=== PATIENT | female | born 1940 | race Caucasian/White ===

== ENCOUNTER 2018-10-16 19:08 | Inpatient (IN) | payer MEDICARE, OTHER ==
[~2018-10-16] VITALS: Ht 160 cm; Wt 70.8 kg
[2018-10-16] VITALS (7 sets, daily range): BP systolic 102–141; BP diastolic 37–78
[~2018-10-16 19:08] MED LIST: AMIO200T4 PO; ATOR40TA PO; CHOL10002 PO; DABI75CA3 PO; HYDR12.5 PO; LEVO25TA9 PO; LISI10TA5 PO; METO25TA6 PO; PANT40TA2 PO
--- NOTE | 2018-10-16 19:25 | NUR ---
PT BIBPA FOR ABNORMAL LABS FROM [facility]. PT AXO0. PT VENT DEPENDENT. SETTING SIMV RATE 10, TIDAL VOLUME 500, PEEP 5,02 @ 40%. PT PUT ON THE MAINTENANCE CLERK AND PULSE OX. SKIN WARM TO THE TOUCH AND DRY.
[2018-10-16 19:45] LABS: BASOPHILS # (AUTO) 0.1 /CMM (0.0-0.2); BASOPHILS % (AUTO) 0.3 % (0.0-2.0); EOSINOPHILS % (AUTO) 5.1 % (0.0-6.0); HEMATOCRIT 27 % (33-45); HEMOGLOBIN 9.1 g/dL (11.5-14.8); LYMPHOCYTES # (AUTO) 1.5 /CMM (0.8-4.8); LYMPHOCYTES % (AUTO) 8.1 % (20.0-44.0); MEAN CORPUSCULAR HGB CONC 34 g/dl (31.0-36.0); MEAN CORPUSCULAR VOLUME 91 fL (82-100); MONOCYTES # (AUTO) 1.3 /CMM (0.1-1.30); MONOCYTES % (AUTO) 7.5 % (2.0-12.0); NEUTROPHILS # (AUTO) 14.2 /CMM (1.8-8.9); PLATELET COUNT (AUTO) 541 /CMM (150-450); RED BLOOD CELL COUNT(AUTO) 2.92 MIL/uL (4.0-5.2); WHITE BLOOD COUNT (AUTO) 17.9 K/uL (4.3-11.0)
--- NOTE | 2018-10-16 19:45 | NUR ---
XRAY AT BEDSIDE.
--- NOTE | 2018-10-16 19:56 | NUR ---
URINE OBTAINED AND SENT TO LAB.
[2018-10-16] MEDS ORDERED: PIPERACILLIN /TAZOBACTAM 3.375 G in IV D5W 50 ML IV ONE (20:00)
[2018-10-16] MEDS ORDERED: VANCOMYCIN 1 GM in IV D5W 250 ML IV ONE (20:00)
[2018-10-16] MEDS ORDERED: TYL2T PEG (20:06)
[2018-10-16] MEDS ORDERED: SACC250C GT (20:06)
[2018-10-16] MEDS ORDERED: MAGN400O6 GT (20:06)
[2018-10-16] MEDS ORDERED: OMEP20CA10 PEG (20:06)
[2018-10-16] MEDS ORDERED: BISA-79 RC (20:06)
[2018-10-16] MEDS ORDERED: NA P133E RC (20:06)
[2018-10-16] MEDS ORDERED: RANI15SY PEG (20:06)
[2018-10-16] MEDS ORDERED: MULT1TAB73 GT (20:06)
[2018-10-16] MEDS ORDERED: HYDR12.5 PEG (20:06)
[2018-10-16] MEDS ORDERED: DOCU-141 PEG (20:06)
[2018-10-16 20:10] LABS: ALANINE AMINOTRANSFERASE 26 U/L (12-78); ALBUMIN 2.7 g/dL (3.4-5.0); ALKALINE PHOSPHATASE 129 U/L (46-116); ASPARTATE AMINOTRANSFERASE 23 U/L (15-37); BILIRUBIN,DIRECT 0.1 mg/dL (0.0-0.2); BILIRUBIN,TOTAL 0.2 mg/dL (0.2-1.0); CALCIUM, SERUM 8.8 mg/dL (8.5-10.1); CARBON DIOXIDE 23 mmol/L (21-32); CHLORIDE 87 mmol/L (98-107); CREATININE 2.5 mg/dL (0.6-1.3); GLUCOSE 121 mg/dL (74-106); POTASSIUM 5.2 mmol/L (3.5-5.1); TOTAL PROTEIN, SERUM 7.2 g/dL (6.4-8.2); UREA NITROGEN, BLOOD 61 mg/dL (7-18)
[2018-10-16 20:12] LABS: SODIUM SERUM 120 mmol/L (136-145)
[2018-10-16 20:13] LABS: APPEARANCE,URINE Clear (CLEAR); BILIRUBIN,URINE Negative (NEGATIVE); BLOOD, URINE Negative Ery/uL (NEGATIVE); COLOR,URINE Yellow (YELLOW); KETONES,URINE Negative (NEGATIVE); LEUKOCYTE ESTERASE ,URINE Small (NEGATIVE); NITRITE, URINE Negative (NEGATIVE); PROTEIN,URINE Negative (NEGATIVE); UGLUCOSE Negative (NEGATIVE); UROBILINOGEN,URINE 0.2 EU/dL (0.2)
[2018-10-16] MEDS ORDERED: VANCOMYCIN 1 GM VIAL ONE (20:24)
[2018-10-16] MEDS ORDERED: IV NS 0.9% 1,000 ML BAG IV ONE ×2 (20:30→21:00)
--- NOTE | 2018-10-16 20:36 | NUR ---
CALLED DR. CORNELIUS [phone], VOICEMAIL LEFT, WAITING FOR MD CALL BACK,
--- NOTE | 2018-10-16 20:50 | NUR ---
PT HYPOTENSIVE ON THE MONITOR. ER MD AWARE. WILL CARRY OUT ORDERS.
[2018-10-16 20:52] LABS: URINE SODIUM, RANDOM 20 mmol/l (40-220)
[2018-10-16 21:02] LABS: OSMOLALITY,URINE 234 mOS/kg (340-1090)
[2018-10-16 21:04] LABS: BACTERIA,URINE Moderate /HPF (None Seen); RBC,URINE 0-2 /HPF (0-2); SQUAMOUS EPITHELIAL CELL,UR Few /HPF (None Seen)
[2018-10-16] MEDS ORDERED: NOREPINEPHRINE 4 MG/4 ML AMPUL IV ONE (21:14)
--- NOTE | 2018-10-16 21:23 | NUR ---
STEPHY SOLORZANO AT BEDSIDE FOR PICC LINE INSERTION.
--- NOTE | 2018-10-16 21:29 | NUR ---
XRAY AT BEDSIDE.
[2018-10-16] MEDS ORDERED: NOREPINEPHRINE 8 MG in IV D5W 500 ML IV PRN (21:30)
--- NOTE | 2018-10-16 22:15 | NUR ---
LEVOPHED DRIP INFUSING AT 12MCG/MIN, BP 91/44.
--- NOTE | 2018-10-16 22:29 | NUR ---
REPORT GIVEN TO SOFIE SOLORZANO FOR KATHI.
--- NOTE | 2018-10-16 22:45 | NUR ---
ACQUISITIONS LOGISTICS ANALYST NOTES ADMITTED PATIENT FROM ER WHO PRESENTED FROM [facility] FOR EVALUATION DUE TO ABNORMAL LABS (WBC=19.4). HX OF CVA WITH APHASIA,HEMIPARESIS,htn,AFIB,TRACHE/VENT,PEG,BILATERAL HEEL WOUND/ULCER. PATIENT LETHARGIC,OPENS EYES,GRIMACES EDU PAIN,+ COUGH AND GAG.WITH TRACHEOSTOMY # 8 TO THE VENTILATOR .,NOT IN ANY DISTRESS.PICC LINE(CECE) INSERTED IN ER FOR PRESSORS (ON LEVOPHED DRIP FOR BP SUPPORT).g TUBE INTACT ,CLAMPED.WOUND /ULCER NOTED ON LEFT FOOT/ANKLE, AND DTI ON RIGHT HEEL., RASHES/REDNESS ALSO NOTED ALL OVER ABDOMEN AND CHEST AREA.LEFT ARM + CELLULITIS.COMFORT CARE,BACK CARE DONE.
--- NOTE | 2018-10-16 23:07 | NUR ---
RT NOTE PT RECEIVED FROM ER ON THE [facility] VENT SETTINGS OF AC 10, 500, 40% +5. NO RESP DISTRESS NOTED AT THIS TIME. VENT IS PLUGGED INTO RED OUTLET AND ALARMS ARE ON AND AUDIBLE. AMBU BAG IS AT BEDSIDE. WILL CONT TO MONITOR PT. PT IS IN ISOLATION. Addendum: 10/16/18 at 2309 by ZEINAB CUMMINS RT Amended: Links added.
[2018-10-17] VITALS (47 sets, daily range): BP systolic 96–138; BP diastolic 40–75
--- NOTE | 2018-10-17 | NUR ---
LEARNING AND DEVELOPMENT ASSOCIATE NOTES rEMAINS STABLE,LEVOPHED DRIP TITRATED DOWN TOLERATING WITH GOOD BP.NOTED A SKIN BITE /CUT ON RIGHT LOWER LIP WHEN PATIENT OPENED HER MOUTH.(PATIENT ALWAYS CLENCHING HER TEETH/BITING HER LIPS AND STARTS BLEEDING.
[2018-10-17] MEDS: IV NS 0.9% 1,000 ML IV PRN ×3 (00:26→19:21)
[2018-10-17] MEDS: NOREPINEPHRINE 8 MG in IV D5W 500 ML IV PRN ×2 (01:52→05:28)
[2018-10-17] MEDS ORDERED: PIPERACILLIN /TAZOBACTAM 3.375 G in IV D5W 50 ML IV SCH (02:00)
[2018-10-17] MEDS ORDERED: PIPERACILLIN /TAZOBACTAM 2.25 G in IV D5W 50 ML IV ONE (04:00)
[2018-10-17] MEDS ORDERED: PIPERACILLIN /TAZOBACTAM 2.25 G VIAL IV ONE (04:32)
[2018-10-17] MEDS ORDERED: NOREPINEPHRINE 4 MG/4 ML AMPUL IV ONE (04:32)
[2018-10-17 05:06] LABS: BASOPHILS % (AUTO) 0.1 % (0.0-2.0); EOSINOPHILS % (AUTO) 0.1 % (0.0-6.0); HEMATOCRIT 25 % (33-45); HEMOGLOBIN 8.4 g/dL (11.5-14.8); LYMPHOCYTES # (AUTO) 0.5 /CMM (0.8-4.8); LYMPHOCYTES % (AUTO) 1.5 % (20.0-44.0); MEAN CORPUSCULAR HGB CONC 33 g/dl (31.0-36.0); MEAN CORPUSCULAR VOLUME 92 fL (82-100); MONOCYTES % (AUTO) 3.3 % (2.0-12.0); NEUTROPHILS # (AUTO) 29.6 /CMM (1.8-8.9); PLATELET COUNT (AUTO) 579 /CMM (150-450); RED BLOOD CELL COUNT(AUTO) 2.75 MIL/uL (4.0-5.2)
[2018-10-17 05:21] LABS: WHITE BLOOD COUNT (AUTO) 31.2 K/uL (4.3-11.0)
[2018-10-17 05:22] LABS: ALANINE AMINOTRANSFERASE 26 U/L (12-78); ALBUMIN 2.5 g/dL (3.4-5.0); ALKALINE PHOSPHATASE 115 U/L (46-116); ASPARTATE AMINOTRANSFERASE 25 U/L (15-37); BILIRUBIN,TOTAL 0.3 mg/dL (0.2-1.0); CALCIUM, SERUM 8.1 mg/dL (8.5-10.1); CARBON DIOXIDE 17 mmol/L (21-32); CHLORIDE 91 mmol/L (98-107); CREATININE 2.3 mg/dL (0.6-1.3); GLUCOSE 232 mg/dL (74-106); POTASSIUM 4.2 mmol/L (3.5-5.1); SODIUM SERUM 123 mmol/L (136-145); TOTAL PROTEIN, SERUM 6.4 g/dL (6.4-8.2); UREA NITROGEN, BLOOD 53 mg/dL (7-18)
[2018-10-17 05:57] LABS: LYMPHOCYTES % (MANUAL) 3 % (16-48); MONOCYTES % (MANUAL) 2 % (0-11.0); NEUTROPHILS % (MANUAL) 95 (42-76)
--- NOTE | 2018-10-17 07:30 | NUR ---
RN NOTES RECEIVED PATIENT IN BED, AWAKE, WITH SPONTANEOUS EYE OPENING, NON VERBAL, NOT ON ANY FORM OF DISTRESS, TRACH TO VENT, TOLERATING CURRENT VENT SETTINGS, NO SOB NOTED, SAT AT 97%, WITH BLOOD TINGED ORAL SECRETION- NOTED WITH CUT ON THE RIGHT CORNER OF THE LOWER LIP. PATIENT SINUS RHYTHM ON THE MONITOR, HR AT 87 AT THIS TIME. SKIN IS SCALY DRY, IV LINE NOTED ON THE R HAND G 24- REMOVE DUE TO DISLODGED. 3 LUMEN PICC LINE NOTED ON THE LEFT UPPER ARM: IN PLACE AND INTACT, DRESSING CDI. WITH INFUSING IVF OF NORMAL SALINE AT 125 CC/HR AND LOVEPHED AT 7MCG/MIN (28.35ML/HR). GT IN PLACE, CLAMPED AT THIS TIME. GT PLACEMENT CONFIRMED THROUGH AUSCULTATION AND ASPIRATING GASTRIC RESIDUAL, RESIDUAL AT 20CC/ SAFETY MEASURES OBSERVED AND MAINTAINED. HOB KEPT ELEVATED. BED LOW AND LOCKED POSITION. CALL LIGHT PLACE WITHIN REACH. WILL CONTINUE TO MONITOR PATIENT CLOSELY.
[2018-10-17] MEDS ORDERED: FEE PK DOSING 1 MIN EA MC ONE (07:43)
[2018-10-17] MEDS ORDERED: Z GUARD REMEDY 2 OZ OINT TP PRN (08:30)
--- NOTE | 2018-10-17 08:32 | NUR ---
RN NOTES ANOTHER IV ACCESS CITE NOTED ON THE L FOOT, G 20: IN PLACE AND INTACT. PATENT ON FLUSHING. DRESSING CDI.
--- NOTE | 2018-10-17 08:32 | NUR ---
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 RECOMMEND DPM CONSULT. RECOMMENDATIONS MADE FOR SKIN PROTECTION. DISCUSSED WITH NURSING STAFF. DEFER TO DPM FOR LOWER EXTREMITIES. DEFER TO MD FOR LOWER LIP LESION AND RASH TO CHEST, ARMS AND BACK, UNKNOWN ETIOLOGY. FIRST STEP LOW AIRLOSS MATTRESS ORDERED. WILL SEE PRN. CURRENT RAO SCORE IS 10. MD IN AGREEMENT WITH PLAN OF CARE. Addendum: 10/17/18 at 0837 by TERE PIPER WNDNU Amended: Links added.
[2018-10-17] MEDS: Z GUARD REMEDY 2 OZ OINT TP SCH (09:00)
[2018-10-17] MEDS: PANTOPRAZOLE 40 MG VIAL IV SCH (09:01)
[2018-10-17] MEDS: ENOXAPARIN SODIUM 30 MG/0.3 ML DISP.SYRIN SQ SCH (09:03)
--- NOTE | 2018-10-17 11:00 | NUR ---
RN NOTES SEEN AND EXAMINED BY DR. SHARMA FOR WOUND MANAGEMENT CONSULT. PER MD CYNTHIA WOUND NEEDS DEBRIDEMENT "I WILL PUT ON THE ORDER. CAN YOU CALL PRIMARY DECISION MAKER FOR CONSULT? TRIED TO REACH OUT SON OBDULIA AND DAUGHTER STEVE, BUT WAS UNSUCCESSFUL. WILL TRY AGAIN LATER.
[2018-10-17 11:49] LABS: ABG BASE EXCESS -5.9 mmol/L; ABG OXYGEN SATURATION 98.3 % (92.0-98.5); ABG PCO2 25.9 mmHg (35.0-45.0); ABG PH 7.442 (7.350-7.450); ABG PO2 149.7 mmHg (75.0-100.0); AaDO2 105.7 mmHg; COHb 0.3 % (0.5-1.5); MetHb 0.9 % (0.0-1.5); O2Hb 97.1 % (94.0-97.0); SITE, ABG Right Radial
[2018-10-17] MEDS ORDERED: GLUCERNA 1.2 1,000 ML BOTTLE NG PRN (12:30)
[2018-10-17] MEDS: PIPERACILLIN /TAZOBACTAM 2.25 G in IV D5W 50 ML IV SCH ×2 (12:49→21:00)
[2018-10-17] MEDS ORDERED: BISACODYL (5 MG) 5 MG TABLET.DR GT PRN (15:30)
[2018-10-17] MEDS ORDERED: MAGNESIUM HYDROXIDE 30 ML UDC GT PRN (15:30)
[2018-10-17] MEDS ORDERED: NA PHOS,M-B/NA PHOS,DI-BA 1 EA ENEMA RC PRN (15:30)
--- NOTE | 2018-10-17 16:49 | NUR ---
Patient is trach/vent dependent, resides at [facility] [phone].She is bedfast and totally dependent with adl's. Current dc plan is to return to [facility] when d/c. Addendum: 10/17/18 at 1650 by ORAL RICHARD RN Amended: Links added.
--- NOTE | 2018-10-17 19:15 | NUR ---
RCVD TRACH PT WITH SHILEY 8 XLT ON VENT WITH NOTED SETTINGS. PT IS OBTUNDED AND NON VERBAL. SUCTIONED SMALL AMOUNT OF WHITE THICK SECRETIONS. ALARMS ON AND AUDIBLE. VENT PLUGGED INTO RED OUTLET, AMBU BAG AT BEDSIDE. NO RESPIRATORY DISTRESS NOTED AT THIS TIME. WILL CONTINUE TO MONITOR THE PT.
--- NOTE | 2018-10-17 19:30 | NUR ---
RN NOTES ENDORSED PATIENT FORM CONTINUITY OF CARE. NO ACUTE CHANGES WITHIN SHIFT. ALL NURSING NEEDS ATTENDED AND MET. SAFETY MEASURES IN PLACE AT ALL TIMES. HOB KEPT ELEVATED. CALL LIGHT WITHIN REACH.
--- NOTE | 2018-10-17 20:00 | NUR ---
Received patient obtunded eyes open spontaneously not tracking non verbal not following commands. Respiration even and unlabored.With trach to vent.Vent settings well tolerated.SPO2 100%secretions suctioned prn.Tele shows SR.Normotensive.Glucerna feeding infusing via GT tolerating well.No residual noted.HOB elevated.IVF NS infusing via CECE PICC LINE site intact.With multiple skin issues.Plan of care implemented.No acute distress noted.
[2018-10-18] VITALS (80 sets, daily range): BP systolic 91–140; BP diastolic 40–78
[2018-10-18] MEDS: IV NS 0.9% 1,000 ML IV PRN ×2 (03:47→14:05)
[2018-10-18] MEDS: PIPERACILLIN /TAZOBACTAM 2.25 G in IV D5W 50 ML IV SCH (04:46)
[2018-10-18 05:08] LABS: CALCIUM, SERUM 8.1 mg/dL (8.5-10.1); CARBON DIOXIDE 21 mmol/L (21-32); CHLORIDE 102 mmol/L (98-107); CREATININE 1.6 mg/dL (0.6-1.3); GLUCOSE 104 mg/dL (74-106); POTASSIUM 4.2 mmol/L (3.5-5.1); SODIUM SERUM 134 mmol/L (136-145); UREA NITROGEN, BLOOD 32 mg/dL (7-18)
--- NOTE | 2018-10-18 07:00 | NUR ---
Patient resting in no acute distress.VS stable.Tolerating feeding well.IVF infusing.AM care done. Oral care done.Patient blood culture gram positive cocci in clusters called to with orders. Patient son visiting and updates given.Son requested to be called after procedure.Re debridement. Will endorse to day shift RN for continuity of care.
[2018-10-18] MEDS ORDERED: VANCOMYCIN 0.75 GM in IV D5W 250 ML IV SCH (08:00)
[2018-10-18] MEDS: DOCUSATE SODIUM 100 MG CAPSULE PO SCH (08:24)
[2018-10-18] MEDS: AMIODARONE HCL 200 MG TABLET PO SCH (08:25)
[2018-10-18] MEDS: PANTOPRAZOLE 40 MG VIAL IV SCH ×2 (08:26→11:16)
[2018-10-18] MEDS: ATORVASTATIN 40 MG TABLET PO SCH (08:26)
[2018-10-18] MEDS: METOPROLOL TARTRATE 25 MG TABLET PO SCH (08:26)
[2018-10-18] MEDS: DAKINS HALF STRENGTH (0.25%) 480 ML BOTTLE TOP SCH (08:27)
[2018-10-18] MEDS: Z GUARD REMEDY 2 OZ OINT TP SCH (08:27)
[2018-10-18] MEDS: ENOXAPARIN SODIUM 30 MG/0.3 ML DISP.SYRIN SQ SCH (08:28)
[2018-10-18] MEDS: PIPERACILLIN /TAZOBACTAM 3.375 G in IV D5W 100 ML IV SCH ×2 (13:56→20:10)
[2018-10-18] MEDS: JEVITY 1.2 CAL 1,000 ML BOTTLE GT PRN (17:20)
[2018-10-18] MEDS: LACTOBACILLUS RHAMNOSUS GG 1 EACH CAP.SPRINK PO SCH (17:20)
--- NOTE | 2018-10-18 19:12 | NUR ---
RCVD TRACH PT WITH SHILEY 8 XLT ON VENT WITH NOTED SETTINGS. PT IS OBTUNDED AND NON VERBAL. SUCTIONED SMALL AMOUNT OF YELLOW/GOMEZ THICK SECRETIONS. TRACH PATENT AND SECURED. ALARMS ON AND AUDIBLE. VENT PLUGGED INTO RED OUTLET, AMBU BAG AT BEDSIDE. NO RESPIRATORY DISTRESS NOTED AT THIS TIME. WILL CONTINUE TO MONITOR THE PT.
--- NOTE | 2018-10-18 19:45 | NUR ---
ICU/TAXI DRIVER SUPERVISOR RECEIVED REPORT FROM DAY NURSE. SEE FLOWSHEET FOR ASSESSMENT AND ANY SKIN ISSUES WHICH ARE ADDRESSED HERE ALONG WITH EACH OF THEIR INTERVENTIONS. PT WAS THEN TURNED AND REPOSITIONED FOR COMFORT AND CARE. WILL CONTINUE TO MONITOR THIS PT.
--- NOTE | 2018-10-18 22:56 | NUR ---
ICU/HEAD RESIDENT PT'S HEART RHYTHM WENT FROM NORMAL SINUS RHYTHM TO AFLUTTER. PT HAS HISTORY OF THIS. WILL CONTINUE TO MONITOR THIS PT AND HER HEART RHYTHM.
[2018-10-19] VITALS (42 sets, daily range): BP systolic 90–148; BP diastolic 42–85
--- NOTE | 2018-10-19 00:01 | NUR ---
ICU/BROOM MACHINE OPERATOR PT IS NOW NPO FOR G/TUBE PLACEMENT LATER TODAY. PT WAS TURNED AND REPOSITIONED COMFORT AND CARE.
--- NOTE | 2018-10-19 02:10 | NUR ---
ICU/STEPDOWN NURSE PT'S HEART RATE WENT BACK INTO NORMAL SINUS RHYTHM. WILL CONTINUE TO MONITOR THIS PT AND HER HEART RATE.
--- NOTE | 2018-10-19 03:10 | NUR ---
ICU/DESIGN COORDINATOR PT GIVEN AM CARE ALONG WITH ORAL CARE. PT TOLERATED THIS WELL REMAINS ON CURRENT VENT SETTINGS, WITH SATURATION AT 98-100%. PT WAS TURNED AND REPOSITIONED FOR COMFORT AND CARE. WILL CONTINUE TO MONITOR THIS PT, THERE IS NO ACUTE DISTRESS SEEN AT THIS TIME.
[2018-10-19] MEDS: PIPERACILLIN /TAZOBACTAM 3.375 G in IV D5W 100 ML IV SCH ×3 (03:37→21:16)
--- NOTE | 2018-10-19 05:01 | NUR ---
ICU/FIXTURE BUILDER PRE-OP CHECK LIST DONE FOR G-TUBE PLACEMENT LATER TODAY. AND CONSENT IS SIGNED BY SON
[2018-10-19 06:34] LABS: BASOPHILS # (AUTO) 0.1 /CMM (0.0-0.2); BASOPHILS % (AUTO) 0.6 % (0.0-2.0); EOSINOPHILS % (AUTO) 10.8 % (0.0-6.0); HEMATOCRIT 21 % (33-45); HEMOGLOBIN 7.5 g/dL (11.5-14.8); LYMPHOCYTES # (AUTO) 0.9 /CMM (0.8-4.8); LYMPHOCYTES % (AUTO) 8.3 % (20.0-44.0); MEAN CORPUSCULAR HGB CONC 35 g/dl (31.0-36.0); MEAN CORPUSCULAR VOLUME 92 fL (82-100); MONOCYTES # (AUTO) 0.7 /CMM (0.1-1.30); MONOCYTES % (AUTO) 6.2 % (2.0-12.0); NEUTROPHILS # (AUTO) 7.9 /CMM (1.8-8.9); NEUTROPHILS % (AUTO) 74.1 % (43.0-81.0); PLATELET COUNT (AUTO) 367 /CMM (150-450); RED BLOOD CELL COUNT(AUTO) 2.34 MIL/uL (4.0-5.2); WHITE BLOOD COUNT (AUTO) 10.6 K/uL (4.3-11.0)
[2018-10-19 06:59] LABS: CALCIUM, SERUM 8.1 mg/dL (8.5-10.1); CARBON DIOXIDE 21 mmol/L (21-32); CHLORIDE 105 mmol/L (98-107); CREATININE 1.4 mg/dL (0.6-1.3); GLUCOSE 90 mg/dL (74-106); SODIUM SERUM 137 mmol/L (136-145); UREA NITROGEN, BLOOD 20 mg/dL (7-18)
--- NOTE | 2018-10-19 07:29 | NUR ---
INITIAL CONDUCTOR SLEEPING CAR NOTE RCVD PT ABLE TO OPEN EYES, NOT FOLLOWING COMMANDS, TOLERATING ORDERED VENT SETTINGS, SR ON MONITOR WITH GENERALIZED EDEMA AND TAUT DRY, SKIN. PEG CLAMPED TO BE CHANGED BY DR. MOTTA LATER TODAY.CECE PICC C/D/I/PATENT, NO S/O INFILTRATION/PHLEBITIS OBSERVED IVF INFUSING ORDERED. WILL CONTINUE TO MONITOR PT FOR SAFETY AND COMFORT. BED IN LOW AND LOCKED POSITION. HEAD OF BED ELEVATED.
[2018-10-19] MEDS: VANCOMYCIN 0.75 GM in IV D5W 250 ML IV SCH (08:50)
[2018-10-19] MEDS: LACTOBACILLUS RHAMNOSUS GG 1 EACH CAP.SPRINK PO SCH ×2 (08:51→17:00)
[2018-10-19] MEDS: AMIODARONE HCL 200 MG TABLET PO SCH (08:51)
[2018-10-19] MEDS: ATORVASTATIN 40 MG TABLET PO SCH (08:51)
[2018-10-19] MEDS: METOPROLOL TARTRATE 25 MG TABLET PO SCH (08:51)
[2018-10-19] MEDS: ENOXAPARIN SODIUM 30 MG/0.3 ML DISP.SYRIN SQ SCH (08:51)
[2018-10-19] MEDS: DOCUSATE SODIUM 100 MG CAPSULE PO SCH (08:51)
[2018-10-19] MEDS: DAKINS HALF STRENGTH (0.25%) 480 ML BOTTLE TOP SCH (08:54)
[2018-10-19] MEDS: Z GUARD REMEDY 2 OZ OINT TP SCH (08:56)
[2018-10-19] MEDS: PANTOPRAZOLE 40 MG VIAL IV SCH (09:20)
--- NOTE | 2018-10-19 12:20 | NUR ---
[facility] RN NOTES RECEIVED PT OBTUNDED, TRACH IN PLACE. TOLERATING VENT WELL. NO RESPIRATORY DISTRESS NOTED. NO SOB NOTED. NO SIGNS OF PAIN NOTED. PT SINUS RHYTHM ON THE MONITOR. GT REINSERTED TODAY BY DR MOTTA. CECE PICC IN PLACE. IVF INFUSING. PT CLEAN AND DRY. PT COMFORTABLE. BLE ELEVATED. PT COMFORTABLY PLACED IN ROOM. WILL MONITOR
--- NOTE | 2018-10-19 12:31 | NUR ---
ICU TRANSFER NOTE PT TRANSFERRED TO [facility] ROOM 117-2 REPORT GIVEN OVER THE PHONE TO JEANINE VALE FOR CONTINUITY OF CARE. PT REMAINED STABLE, TRANSPORTED VIA BED PER PROTOCOL, TOLERATED TRANSFER WELL. DR. MOTTA CHANGED G-TUBE EARLIER THIS AM. PT'S MEDICATIONS AND BELONGINGS TRANSPORTED WITH PT.
--- NOTE | 2018-10-19 13:03 | NUR ---
RT NOTE RECEIVED PT MECHANICALLY VENTILATED VIA SHILEY 8 XLT CUFFED TRACHEOSTOMY TUBE. CUFF INFLATED. TRACH TUBE MIDLINE AND SECURE. VENTILATOR SETTINGS PRESCRIBED. ALARMS SET PER PROTOCOL AND AUDIBLE. VENT PLUGGED IN TO RED OUTLET. AMBU BAG AT BED SIDE. NO DISTRESS NOTED AT MOMENT. WILL CONTINUE TO MONITOR. Addendum: 10/19/18 at 1304 by YISEL SRIVASTAVA RT Amended: Links added.
[2018-10-19] MEDS ORDERED: FUROSEMIDE 20 MG/2 ML VIAL IV ONE ×2 (14:00→18:00)
[2018-10-19] MEDS ORDERED: diphenhydrAMINE HCL 50 MG CAPSULE PO ONE (14:00)
[2018-10-19] MEDS ORDERED: ACETAMINOPHEN 325 MG TABLET PO ONE (14:00)
[2018-10-19] MEDS: IV NS 0.9% 1,000 ML IV PRN (16:56)
[2018-10-19] MEDS: JEVITY 1.2 CAL 1,000 ML BOTTLE GT PRN (16:57)
[2018-10-19] MEDS ORDERED: diphenhydrAMINE HCL 25 MG CAPSULE PO ONE (18:00)
[2018-10-19] MEDS ORDERED: ACETAMINOPHEN 650 MG/20.3 ML UDC GT ONE (18:00)
--- NOTE | 2018-10-19 18:00 | NUR ---
RN NOTES ORDER FOR TYLENOL, LASIX AND BENADRYL CLARIFIED WITH DR CORNELIUS. ORDERED TO GIVE PRIOR BLOOD TRANSFUSION. AWAITING FOR BLOOD AVAILABILITY FROM BLOOD BANK
--- NOTE | 2018-10-19 18:30 | NUR ---
RN CLOSING NOTES NO SIGNIFICANT CHANGE NOTED. NO RESPIRATORY DISTRESS NOTED. NO SIGNS OF PAIN NOTED. KEPT HOB ELEVATED. PT KEPT COMFORTABLE. TX PROVIDED ORDERED. REPOSITIONED Q2. BLE ELEVATED. FOR BLOOD TRANSFUSION, 1 UNIT PRBC, AWAITING FOR AVAILABILITY FROM BLOOD BANK. WILL ENDORSE FOR CONTINUITY OF CARE.
--- NOTE | 2018-10-19 19:30 | NUR ---
PT REC'D TRACHED VIA SHILEY [address] [facility] VENT ON AC MODE. NO RESP DISTRESS OR SOB NOTED. TRACH PATENT AND SECURED. SX'D FOR MOD AMT OF THICK PALE YELLOW SECRETIONS. ALARMS ARE SET AND AUDIBLE. VENT PLUGGED INTO RED OUTLET. AMBU BAG BEDSIDE. WILL CONTINUE TO MONITOR. Addendum: 10/19/18 at 1944 by LEON AGUILAR RT Amended: Links added.
--- NOTE | 2018-10-19 22:44 | NUR ---
TD/RN INITIAL NOTES RECEIVED PT IN BED. SON STEVE AT BEDSIDE. PT IS OBTUNDED. SR ON TELE. WITH INTACT TRACH ON VENT, SPO2 100%. NO SOB NOTED. WITH ONGOING IVF NS AT 60 ML/HR INFUSING WELL ON CECE MIDLINE. S/P GT REPLACEMENT. GT INTACT AND IN PLACED WITH ONGOING GTF JEVITY AT 20 ML/HR, NO RESIDUALS NOTED. GOAL AT 50 ML/HR. HOB ELEVATED. SAFETY MEASURES AND ASPIRATION PRECAUTION IN PLACED. CALL LIGHT WITHIN REACH. WILL CONT TO MONITOR PT IS FOR BLOOD TRANSFUSION, AWAITING FOR BLOOD. BLOOD BANK TO CALL. WILL FOLLOW UP
[2018-10-20] VITALS: BP 131/67
[2018-10-20 04:00] VITALS: BP 148/64
[2018-10-20] MEDS: PIPERACILLIN /TAZOBACTAM 3.375 G in IV D5W 100 ML IV SCH ×3 (04:03→20:20)
[2018-10-20 06:59] LABS: CALCIUM, SERUM 8.3 mg/dL (8.5-10.1); CARBON DIOXIDE 18 mmol/L (21-32); CHLORIDE 105 mmol/L (98-107); CREATININE 1.6 mg/dL (0.6-1.3); GLUCOSE 154 mg/dL (74-106); POTASSIUM 3.9 mmol/L (3.5-5.1); SODIUM SERUM 136 mmol/L (136-145); UREA NITROGEN, BLOOD 20 mg/dL (7-18)
[2018-10-20 07:02] LABS: BASOPHILS % (AUTO) 0.3 % (0.0-2.0); EOSINOPHILS % (AUTO) 4.3 % (0.0-6.0); HEMATOCRIT 28 % (33-45); HEMOGLOBIN 9.6 g/dL (11.5-14.8); LYMPHOCYTES # (AUTO) 0.6 /CMM (0.8-4.8); LYMPHOCYTES % (AUTO) 3.8 % (20.0-44.0); MEAN CORPUSCULAR HGB CONC 34 g/dl (31.0-36.0); MEAN CORPUSCULAR VOLUME 91 fL (82-100); MONOCYTES # (AUTO) 0.9 /CMM (0.1-1.30); MONOCYTES % (AUTO) 5.4 % (2.0-12.0); NEUTROPHILS # (AUTO) 13.9 /CMM (1.8-8.9); NEUTROPHILS % (AUTO) 86.2 % (43.0-81.0); PLATELET COUNT (AUTO) 423 /CMM (150-450); RED BLOOD CELL COUNT(AUTO) 3.08 MIL/uL (4.0-5.2); WHITE BLOOD COUNT (AUTO) 16.1 K/uL (4.3-11.0)
--- NOTE | 2018-10-20 07:26 | NUR ---
RN NOTES PT IN STABLE CONDITION. NO ACUTE CHANGES THROUGHOUT SHIFT. ALL NEEDS ANTICIPATED. SAFETY MEASURES AND ASPIRATION PRECAUTION OBSERVED AT ALL TIMES. ENDORSED TO AM SHIFT RN FOR KATHI
--- NOTE | 2018-10-20 07:29 | NUR ---
RT RT RECEIVED PT TRACH VENT DEPENDENT WITH NOTED SETTINGS. MASTER COSMETOLOGIST DONE AND TRACH IS SECURE. VENT ALARMS CHECKED AND AUDIBLE. VENT PLUGGED IN RED OUTLET. B/S VICENTA RHONCHI, SX WITH MOD THK PALE YELLOW SECRETIONS. AMBU BAG NOTED HOB. PT ON CONTINUOUS PULSE OX, PT TOLERATING SETTINGS WELL. NO SOB OR RESP DISTRESS NOTED AT THIS TIME. WILL CONTINUE TO MONITOR T/O SHIFT.
--- NOTE | 2018-10-20 07:31 | NUR ---
RN NOTE: RECEIVED PATIENT IN BED, OBTUNDED, OPEN EYES SPONTANEOUSLY. ON VENT-TRACH DEPENDENT AND SATURATING 100% WITH CURRENT VENT SETTINGS. NO FACIAL GRIMACING NOTED. ON GT FEEDING OF JEVITY 1.2 @ 50ML/HR AND NOTED WITH NO RESIDUAL AND TOLERATED IT. (L) UA PICC LINE TRIPLE LUMEN NOTED INTACT AND PATENT WITH TRANSPARENT DRESSING IN PLACED INFUSING ZOSYN AND NS @60ML/HR. BED ALARMED AND LOCKED AT ALL TIMES. CALL LIGHT WITHIN REACH. NEEDS ANTICIPATED.
[2018-10-20 08:00] VITALS: BP 134/59
[2018-10-20] MEDS: VANCOMYCIN 0.75 GM in IV D5W 250 ML IV SCH (08:10)
[2018-10-20] MEDS: METOPROLOL TARTRATE 25 MG TABLET PO SCH (09:57)
[2018-10-20] MEDS: LACTOBACILLUS RHAMNOSUS GG 1 EACH CAP.SPRINK PO SCH ×2 (09:58→16:59)
[2018-10-20] MEDS: AMIODARONE HCL 200 MG TABLET PO SCH (09:58)
[2018-10-20] MEDS: ATORVASTATIN 40 MG TABLET PO SCH (09:58)
[2018-10-20] MEDS: DOCUSATE SODIUM 100 MG CAPSULE PO SCH (09:58)
[2018-10-20] MEDS: PANTOPRAZOLE 40 MG VIAL IV SCH (09:58)
[2018-10-20] MEDS: ENOXAPARIN SODIUM 30 MG/0.3 ML DISP.SYRIN SQ SCH (09:59)
[2018-10-20] MEDS: DAKINS HALF STRENGTH (0.25%) 480 ML BOTTLE TOP SCH (10:01)
[2018-10-20] MEDS: Z GUARD REMEDY 2 OZ OINT TP SCH (10:02)
--- NOTE | 2018-10-20 11:30 | NUR ---
RN NOTE: FAMILY PRESENT AT THE BEDSIDE AND GAVE THEM AN UPDATE REGARDING THE PATIENT'S CONDITION. FAMILY HAS NO QUESTION AT THIS TIME.
[2018-10-20 12:00] VITALS: BP 121/66
[2018-10-20] MEDS: IV NS 0.9% 1,000 ML IV PRN (15:19)
[2018-10-20 16:00] VITALS: BP 134/80
--- NOTE | 2018-10-20 19:30 | NUR ---
RN NOTE: PATIENT ON STABLE CONDITION. BEDSIDE REPORT GIVEN TO PM SHIFT NURSE FOR CONTINUITY OF CARE.
--- NOTE | 2018-10-20 19:31 | NUR ---
DAMPER FITTER NOTES Received patient, responsive to pain. On mechanical vent with settings noted, saturating well, no respiratory distress noted. On tele monitoring with SR noted. With patent CECE PICC line with NS infusing well @ 60ml/hr as ordered, no s/sx of infiltration noted. With GTF on going with Jevity 1.2 @ 50ml/hr as ordered, tolerated well, no N/V/D/C noted, abdomen not distended. Afebrile, no discomfort noted at this time. Kept on bed comfortably, clean and dry, side rails up. Will continue to monitor accordingly.
[2018-10-20 20:00] VITALS: BP 140/95
--- NOTE | 2018-10-20 21:45 | NUR ---
RT PATIENT WAS RECEIVED ON CONTINUOUS VENT SUPPORT ON NOTED VENT SETTINGS. PRN SUCTION WAS DONE. ALARMS ARE ON AND AUDIBLE. VENT PLUGGED INTO RED OUTLET. AMBUBAG AND SPARE TRACH AT BEDSIDE. WILL CONTINUE TO MONITOR PATIENT FOR ANY CHANGES. Addendum: 10/20/18 at 2148 by SARAN SRIVASTAVA RT Amended: Links added.
[2018-10-21] VITALS: BP 140/82
[2018-10-21 04:00] VITALS: BP 142/82
[2018-10-21] MEDS: PIPERACILLIN /TAZOBACTAM 3.375 G in IV D5W 100 ML IV SCH ×3 (04:23→19:59)
[2018-10-21] MEDS: JEVITY 1.2 CAL 1,000 ML BOTTLE GT PRN (06:06)
--- NOTE | 2018-10-21 06:36 | NUR ---
SHAKE CUTTER CLOSING NOTES Patient remained responsive to pain only throughout the shift. Afebrile the whole shift, no new unusualities noted. All nursing needs attended. Kept on bed clean, dry and warm. All due meds given as ordered. GTF remained patent with Jev 1.2 @ 50ml/hr, tolerated well, no residual noted. On mechanical vent, settings noted, saturating well 100%. Monitored accordingly. Endorsed to the next shift.
[2018-10-21 07:58] LABS: BASOPHILS # (AUTO) 0.1 /CMM (0.0-0.2); BASOPHILS % (AUTO) 0.4 % (0.0-2.0); HEMATOCRIT 30 % (33-45); LYMPHOCYTES # (AUTO) 1.3 /CMM (0.8-4.8); LYMPHOCYTES % (AUTO) 7.9 % (20.0-44.0); MEAN CORPUSCULAR HGB CONC 34 g/dl (31.0-36.0); MEAN CORPUSCULAR VOLUME 93 fL (82-100); MONOCYTES # (AUTO) 1.3 /CMM (0.1-1.30); MONOCYTES % (AUTO) 7.8 % (2.0-12.0); NEUTROPHILS # (AUTO) 13.1 /CMM (1.8-8.9); NEUTROPHILS % (AUTO) 78.9 % (43.0-81.0); PLATELET COUNT (AUTO) 427 /CMM (150-450); RED BLOOD CELL COUNT(AUTO) 3.19 MIL/uL (4.0-5.2); WHITE BLOOD COUNT (AUTO) 16.6 K/uL (4.3-11.0)
[2018-10-21 08:00] VITALS: BP 172/80
--- NOTE | 2018-10-21 08:00 | NUR ---
TELE1/RN AM SHIFT INITIAL NOTES RECEIVED PT ASLEEP IN BED, NO GRIMACING OR ACUTE CHANGE OF CONDITION NOTED, PT IS OBTUNDED. ON VENTILATOR WITH RATES SET PRESCRIBED, SATURATING @ 100%, RESPIRATIONS EVEN AND UNLABORED. LUNGS CLEAR, SUCTIONED FOR AIRWAY CLEARANCE. ON TELE MONITORING WITH SINUS TACHY, HR 108. PICC LINE IN PLACED WITH ON GOING INFUSION OF NS @ 60CC/HR, NO S/S OF INFECTION. GTF FEEDING ON GOING @ 50CC/HR, NO GASTRIC RESIDUAL NOTED, FLUSHED, PATENT. PT IS COMFORTABLE, SCHEDULED AM MEDS TO BE GIVEN. CL WITHIN REACHED AND SAFETY MAINTAINED. ON GOING MONITORING.
[2018-10-21 08:09] LABS: CALCIUM, SERUM 8.1 mg/dL (8.5-10.1); CARBON DIOXIDE 20 mmol/L (21-32); CHLORIDE 105 mmol/L (98-107); CREATININE 1.5 mg/dL (0.6-1.3); GLUCOSE 122 mg/dL (74-106); SODIUM SERUM 137 mmol/L (136-145); UREA NITROGEN, BLOOD 20 mg/dL (7-18)
[2018-10-21] MEDS: METOPROLOL TARTRATE 25 MG TABLET PO SCH (08:27)
[2018-10-21] MEDS: ATORVASTATIN 40 MG TABLET PO SCH (08:27)
[2018-10-21] MEDS: PANTOPRAZOLE 40 MG VIAL IV SCH (08:27)
[2018-10-21] MEDS: DOCUSATE SODIUM 100 MG CAPSULE PO SCH (08:27)
[2018-10-21] MEDS: ENOXAPARIN SODIUM 30 MG/0.3 ML DISP.SYRIN SQ SCH (08:28)
[2018-10-21] MEDS: AMIODARONE HCL 200 MG TABLET PO SCH (08:29)
[2018-10-21] MEDS: LACTOBACILLUS RHAMNOSUS GG 1 EACH CAP.SPRINK PO SCH ×2 (08:29→17:07)
[2018-10-21] MEDS: DAKINS HALF STRENGTH (0.25%) 480 ML BOTTLE TOP SCH (08:30)
[2018-10-21] MEDS: Z GUARD REMEDY 2 OZ OINT TP SCH (08:31)
[2018-10-21] MEDS: VANCOMYCIN 0.75 GM in IV D5W 250 ML IV SCH (08:36)
[2018-10-21] MEDS: ACETAMINOPHEN 650 MG/20.3 ML UDC NG PRN (09:18)
[2018-10-21 12:00] VITALS: BP 140/85
--- NOTE | 2018-10-21 12:00 | NUR ---
TELE1/RN NOON ROUNDS PT SUCTIONED AND REPOSITIONED, NO CHANGE OF CONDITION. VENTILATOR MACHINE OF CHANGE EARLIER THIS MORNING D/T PT BUCKING THE VENT. TOLERATING NEW VENT MACHINE. SCHEDULED ATB THERAPY GIVEN SCHEDULED. ON GOING MONITORING.
[2018-10-21] MEDS: IV NS 0.9% 1,000 ML IV PRN (14:21)
[2018-10-21 16:00] VITALS: BP 130/78
--- NOTE | 2018-10-21 17:23 | NUR ---
TELE1/RN AFTERNOON ROUNDS PT SUCTIONED AND REPOSITIONED, NO CHANGE OF CONDITION. SCHEDULED PM MEDS GIVEN. MONITORING CONTINUED.
--- NOTE | 2018-10-21 18:37 | NUR ---
RT Pt received awake and alert. Pt is trach'd and on [facility] vent w charted settings. Vent is plugged into red outlet w bmv @ hob. Alarms are set and audible. Pt sx'd w no adverse reactions. No respiratory distress noted t/o shift. Addendum: 10/21/18 at 1839 by LUL LOVE RT Amended: Links added.
--- NOTE | 2018-10-21 18:41 | NUR ---
RT Pt received awake and alert. Pt is trach'd and on [facility] vent w charted settings. Vent is plugged into red outlet w bmv @ hob. Alarms are set and audible. Pt sx'd w no adverse reactions. No respiratory distress noted t/o shift. Addendum: 10/21/18 at 1841 by LUL LOVE RT Amended: Links added.
--- NOTE | 2018-10-21 19:00 | NUR ---
BUSINESS DIRECTOR NOTE RECEIVED PATIENT OBTUNDED, WITH HOB ELEVATED, TRACH TO VENT ON SETTINGS ORDERED, NO OBSERVABLE SIGNS OF PAIN, NO CARDIAC OR RESPIRATORY DISTRESS NOTED, ON TELE SR, INCONTINENT, G TUBE FEEDING JEVITY 1.2 AT 50 ML/HR, CECE PICC WITH NS AT 60 ML/HR, SITE INTACT, PATENT, FLUSHING WELL, SKIN KEPT CLEAN AND DRY, SAFETY MAINTAINED AT ALL TIMES, CALL LIGHT WITHIN REACH, BED IN LOW LOCKED POSITION, WILL CONTINUE TO MONITOR FOR ANY CHANGES.
--- NOTE | 2018-10-21 19:02 | NUR ---
TELE1/RN AM SHIFT END NOTES NO ACUTE CHANGE OF CONDITION DURING THE SHIFT, ALL NEEDS MET. PT ENDORSED TO PM NURSE TO CONTINUE CARE. CL WITHIN REACHED AND SAFETY MAINTAINED.
--- NOTE | 2018-10-21 19:40 | NUR ---
RT PT RECEIVED TRACHED ON [facility] VENT ON CHARTED SETTINGS. NO SIGNS OF RESP DISTRESS NOTED AT THIS TIME. AIRWAY PATENT AND SECURED. PT SUCTIONED. ALARMS SET AND AUDIBLE. AMBUBAG AT BEDSIDE. VENT CONNECTED TO RED OUTLET. WILL CONT TO MONITOR. Addendum: 10/22/18 at 0404 by JORGE NGUYEN RT Amended: Links added.
[2018-10-21 20:00] VITALS: BP 78/51
[2018-10-22] VITALS (7 sets, daily range): BP systolic 80–132; BP diastolic 34–92
[2018-10-22] MEDS: PIPERACILLIN /TAZOBACTAM 3.375 G in IV D5W 100 ML IV SCH ×3 (03:18→20:08)
[2018-10-22 06:33] LABS: BASOPHILS # (AUTO) 0.1 /CMM (0.0-0.2); BASOPHILS % (AUTO) 0.5 % (0.0-2.0); HEMATOCRIT 28 % (33-45); HEMOGLOBIN 9.3 g/dL (11.5-14.8); LYMPHOCYTES # (AUTO) 1.3 /CMM (0.8-4.8); LYMPHOCYTES % (AUTO) 8.3 % (20.0-44.0); MEAN CORPUSCULAR HGB CONC 34 g/dl (31.0-36.0); MEAN CORPUSCULAR VOLUME 94 fL (82-100); MONOCYTES % (AUTO) 6.4 % (2.0-12.0); NEUTROPHILS % (AUTO) 78.8 % (43.0-81.0); PLATELET COUNT (AUTO) 341 /CMM (150-450); RED BLOOD CELL COUNT(AUTO) 2.94 MIL/uL (4.0-5.2); WHITE BLOOD COUNT (AUTO) 15.3 K/uL (4.3-11.0)
[2018-10-22 06:34] LABS: CALCIUM, SERUM 7.9 mg/dL (8.5-10.1); CARBON DIOXIDE 19 mmol/L (21-32); CHLORIDE 106 mmol/L (98-107); CREATININE 1.4 mg/dL (0.6-1.3); GLUCOSE 111 mg/dL (74-106); SODIUM SERUM 138 mmol/L (136-145); UREA NITROGEN, BLOOD 19 mg/dL (7-18)
--- NOTE | 2018-10-22 07:10 | NUR ---
SPOOL CARRIER OPENING NOTE RECEIVED PATIENT OBTUNDED, WITH HOB ELEVATED, TRACH TO VENT ON SETTINGS ORDERED, NO OBSERVABLE SIGNS OF PAIN, NO CARDIAC OR RESPIRATORY DISTRESS NOTED, ON TELE SR HR 78, INCONTINENT, G TUBE FEEDING JEVITY 1.2 AT 50 ML/HR, CECE PICC WITH NS AT 60 ML/HR, SITE INTACT, PATENT, FLUSHING WELL, SKIN KEPT CLEAN AND DRY, SAFETY MAINTAINED AT ALL TIMES, CALL LIGHT WITHIN REACH, BED IN LOW LOCKED POSITION, WILL CONTINUE TO MONITOR PATIENT.
[2018-10-22] MEDS: ACETAMINOPHEN 650 MG/20.3 ML UDC NG PRN ×2 (07:44→17:28)
[2018-10-22] MEDS: IV NS 0.9% 1,000 ML IV PRN (07:44)
[2018-10-22] MEDS: VANCOMYCIN 0.75 GM in IV D5W 250 ML IV SCH (08:51)
[2018-10-22] MEDS: PANTOPRAZOLE 40 MG VIAL IV SCH (08:51)
[2018-10-22] MEDS: LACTOBACILLUS RHAMNOSUS GG 1 EACH CAP.SPRINK PO SCH ×2 (08:51→17:28)
[2018-10-22] MEDS: AMIODARONE HCL 200 MG TABLET PO SCH (08:52)
[2018-10-22] MEDS: ATORVASTATIN 40 MG TABLET PO SCH (08:52)
[2018-10-22] MEDS: DOCUSATE SODIUM 100 MG CAPSULE PO SCH (08:52)
[2018-10-22] MEDS: METOPROLOL TARTRATE 25 MG TABLET PO SCH (08:53)
[2018-10-22] MEDS: ENOXAPARIN SODIUM 30 MG/0.3 ML DISP.SYRIN SQ SCH (08:54)
[2018-10-22] MEDS: Z GUARD REMEDY 2 OZ OINT TP SCH (08:55)
[2018-10-22] MEDS: DAKINS HALF STRENGTH (0.25%) 480 ML BOTTLE TOP SCH (08:55)
[2018-10-22] MEDS: JEVITY 1.2 CAL 1,000 ML BOTTLE GT PRN (17:38)
--- NOTE | 2018-10-22 19:10 | NUR ---
SPEECH LANGUAGE PATHOLOGIST PRN CLOSING NOTE PATIENT RESTING IN BED, OBTUNDED, WITH HOB ELEVATED, TRACH TO VENT ON SETTINGS ORDERED, NO OBSERVABLE SIGNS OF PAIN, NO CARDIAC OR RESPIRATORY DISTRESS NOTED, ON TELE SR HR 80, INCONTINENT, G TUBE FEEDING JEVITY 1.2 AT 50 ML/HR, CECE PICC WITH NS AT 60 ML/HR, SITE INTACT, PATENT, FLUSHING WELL, SKIN KEPT CLEAN AND DRY, PATIENT FEBRILE, COOLING MEASURES DONE, TYLENOL GIVEN PER MD ORDER. ALL MD ORDERS ATTENDED. ALL NEEDS MET. SAFETY MAINTAINED AT ALL TIMES, CALL LIGHT WITHIN REACH, BED IN LOW LOCKED POSITION, ENDORSED TO MARINE DIESEL MECHANIC NURSE FOR KATHI.
--- NOTE | 2018-10-22 19:20 | NUR ---
FULL STACK NET DEVELOPER NOTE PATIENT IS OBTUNDED, RESPONSIVE TO PAIN, OPENS EYES, RESTING WITH HOB ELEVATED, TRACH TO VENT ON SETTINGS ORDERED, NO OBSERVABLE SIGNS OF PAIN, NO CARDIAC OR RESPIRATORY DISTRESS NOTED, ON TELE SR, INCONTINENT, G TUBE FEEDING JEVITY 1.2 AT 50 ML/HR, CECE PICC WITH NS AT 60 ML/HR, SITE INTACT, PATENT, FLUSHING WELL, SKIN KEPT CLEAN AND DRY, SAFETY MAINTAINED AT ALL TIMES, CALL LIGHT WITHIN REACH, BED IN LOW LOCKED POSITION, WILL CONTINUE TO MONITOR FOR ANY CHANGES.
--- NOTE | 2018-10-22 19:40 | NUR ---
RT PT RECEIVED TRACHED ON [facility] VENT ON CHARTED SETTINGS. NO SIGNS OF RESP DISTRESS NOTED AT THIS TIME. AIRWAY PATENT AND SECURED. PT SUCTIONED. ALARMS SET AND AUDIBLE. AMBUBAG AT BEDSIDE. VENT CONNECTED TO RED OUTLET. WILL CONT TO MONITOR. Addendum: 10/22/18 at 2033 by JORGE NGUYEN RT Amended: Links added.
[2018-10-23] VITALS (8 sets, daily range): BP systolic 126–140; BP diastolic 45–72
[2018-10-23] MEDS: ACETAMINOPHEN 650 MG/20.3 ML UDC NG PRN (01:15)
[2018-10-23] MEDS: IV NS 0.9% 1,000 ML IV PRN (04:20)
[2018-10-23] MEDS: PIPERACILLIN /TAZOBACTAM 3.375 G in IV D5W 100 ML IV SCH ×3 (04:20→20:20)
--- NOTE | 2018-10-23 07:10 | NUR ---
RADIOLOGICAL TECHNICIAN OPENING NOTES RECEIVED PT IN BED, HOB ELEVATED 30 DEG. ON VENT SETTINGS MD ORDERED. NO S/SX OF RESP DISTRESS NOTED. PT OBTUNDED. EYES OPEN. ON TELE SR. JEVITY RUNNING AT 50ML/HR. NO RESIDUAL NOTED. PATENCY CONFIRMED. CECE PICC LINE INFUSING WITH NS. BED IN LOCKED/LOW POSITION. SR X2. ASPIRATION PRECAUTIONS MAINTAINED. AMBU BAG AND TRACH AT BEDSIDE. WILL CONT TO MONITOR.
[2018-10-23 07:39] LABS: CALCIUM, SERUM 8.4 mg/dL (8.5-10.1); CARBON DIOXIDE 20 mmol/L (21-32); CHLORIDE 107 mmol/L (98-107); CREATININE 1.4 mg/dL (0.6-1.3); GLUCOSE 94 mg/dL (74-106); POTASSIUM 4.7 mmol/L (3.5-5.1); SODIUM SERUM 138 mmol/L (136-145); UREA NITROGEN, BLOOD 18 mg/dL (7-18)
[2018-10-23 08:16] LABS: BASOPHILS # (AUTO) 0.1 /CMM (0.0-0.2); BASOPHILS % (AUTO) 0.5 % (0.0-2.0); EOSINOPHILS % (AUTO) 6.9 % (0.0-6.0); HEMATOCRIT 32 % (33-45); HEMOGLOBIN 10.5 g/dL (11.5-14.8); LYMPHOCYTES # (AUTO) 1.1 /CMM (0.8-4.8); LYMPHOCYTES % (AUTO) 9.4 % (20.0-44.0); MEAN CORPUSCULAR HGB CONC 33 g/dl (31.0-36.0); MEAN CORPUSCULAR VOLUME 94 fL (82-100); MONOCYTES % (AUTO) 7.9 % (2.0-12.0); NEUTROPHILS # (AUTO) 9.1 /CMM (1.8-8.9); NEUTROPHILS % (AUTO) 75.3 % (43.0-81.0); PLATELET COUNT (AUTO) 158 /CMM (150-450); RED BLOOD CELL COUNT(AUTO) 3.34 MIL/uL (4.0-5.2); WHITE BLOOD COUNT (AUTO) 12.1 K/uL (4.3-11.0)
[2018-10-23] MEDS: VANCOMYCIN 0.75 GM in IV D5W 250 ML IV SCH (08:39)
[2018-10-23] MEDS: PANTOPRAZOLE 40 MG VIAL IV SCH (09:05)
[2018-10-23] MEDS: LACTOBACILLUS RHAMNOSUS GG 1 EACH CAP.SPRINK PO SCH ×2 (09:07→16:12)
[2018-10-23] MEDS: ENOXAPARIN SODIUM 30 MG/0.3 ML DISP.SYRIN SQ SCH (09:07)
[2018-10-23] MEDS: ATORVASTATIN 40 MG TABLET PO SCH (09:07)
[2018-10-23] MEDS: AMIODARONE HCL 200 MG TABLET PO SCH (09:08)
[2018-10-23] MEDS: METOPROLOL TARTRATE 25 MG TABLET PO SCH (09:08)
[2018-10-23] MEDS: DOCUSATE SODIUM 100 MG CAPSULE PO SCH (09:09)
[2018-10-23] MEDS: Z GUARD REMEDY 2 OZ OINT TP SCH (09:26)
[2018-10-23] MEDS: DAKINS HALF STRENGTH (0.25%) 480 ML BOTTLE TOP SCH (09:26)
--- NOTE | 2018-10-23 18:00 | NUR ---
RT NOTE: PATIENT RECEIVED WITH #8 XLT CUFFED TRACHED ON PB 840 VENT. SUCTIONED AND LAVAGED MODERATE AMOUNT OF THICK GOMEZ SECRETIONS. ALARMS VERIFIED AND AUDIBLE. VENT PLUGGED INTO RED OUTLET. AMBU BAG AT [facility].
--- NOTE | 2018-10-23 19:01 | NUR ---
STONE FABRICATOR CLOSING NOTES PT IN BED, RESTING. UPDATED SON WITH POC. TOLERATING VENT SETTINGS. NO S/SX OF DISTRESS NOTED. ALL TX RENDERED ORDERED. ENDORSED TO PM NURSE FOR KATHI.
--- NOTE | 2018-10-23 19:05 | NUR ---
POLICE SERGEANT NOTE RECEIVED PATIENT OBTUNDED, RESPONSIVE TO PAIN, OPENS EYES, RESTING WITH HOB ELEVATED, TRACH TO VENT ON SETTINGS ORDERED, NO OBSERVABLE SIGNS OF PAIN, NO CARDIAC OR RESPIRATORY DISTRESS NOTED, ON TELE SR, G TUBE FEEDING JEVITY 1.2 AT 50 ML/HR, CECE PICC WITH NS AT 60 ML/HR, SITE INTACT, PATENT, FLUSHING WELL, SKIN KEPT CLEAN AND DRY, SAFETY MAINTAINED AT ALL TIMES, CALL LIGHT WITHIN REACH, BED IN LOW LOCKED POSITION, WILL CONTINUE TO MONITOR FOR ANY CHANGES.
[2018-10-24] VITALS (7 sets, daily range): BP systolic 105–143; BP diastolic 42–87
[2018-10-24] MEDS: IV NS 0.9% 1,000 ML IV PRN ×2 (00:10→18:19)
[2018-10-24] MEDS: PIPERACILLIN /TAZOBACTAM 3.375 G in IV D5W 100 ML IV SCH ×3 (03:11→22:12)
[2018-10-24 06:37] LABS: BASOPHILS % (AUTO) 0.3 % (0.0-2.0); HEMATOCRIT 31 % (33-45); HEMOGLOBIN 10.4 g/dL (11.5-14.8); LYMPHOCYTES # (AUTO) 1.2 /CMM (0.8-4.8); LYMPHOCYTES % (AUTO) 9.5 % (20.0-44.0); MEAN CORPUSCULAR HGB CONC 34 g/dl (31.0-36.0); MEAN CORPUSCULAR VOLUME 94 fL (82-100); MONOCYTES # (AUTO) 0.8 /CMM (0.1-1.30); MONOCYTES % (AUTO) 6.6 % (2.0-12.0); NEUTROPHILS # (AUTO) 9.8 /CMM (1.8-8.9); NEUTROPHILS % (AUTO) 80.6 % (43.0-81.0); PLATELET COUNT (AUTO) 147 /CMM (150-450); WHITE BLOOD COUNT (AUTO) 12.2 K/uL (4.3-11.0)
[2018-10-24 06:42] LABS: CALCIUM, SERUM 8.1 mg/dL (8.5-10.1); CARBON DIOXIDE 20 mmol/L (21-32); CHLORIDE 106 mmol/L (98-107); CREATININE 1.4 mg/dL (0.6-1.3); GLUCOSE 115 mg/dL (74-106); POTASSIUM 3.9 mmol/L (3.5-5.1); SODIUM SERUM 137 mmol/L (136-145); UREA NITROGEN, BLOOD 17 mg/dL (7-18)
--- NOTE | 2018-10-24 07:15 | NUR ---
TUBE DRAWER OPENING NOTES RECEIVED PT IN BED, HOB ELEVATED .ALERT.OPEN EYES.ON VENT ,TOLERATING SETTINGS MD ORDERED. NO S/SX OF RESP DISTRESS NOTED. ON TELE MONITOR SR HR 84. ON GTF ,JEVITY AT 50ML/HR. NO RESIDUAL NOTED. CECE PICC LINE WITH NS @60CC/HR. BED IN LOCKED/LOW POSITION. SR X3 . ASPIRATION PRECAUTIONS MAINTAINED. AMBU BAG AND TRACH AT BEDSIDE.CALL LIGHT IN REACH. WILL CONT TO MONITOR.
[2018-10-24] MEDS: VANCOMYCIN 0.75 GM in IV D5W 250 ML IV SCH (08:00)
[2018-10-24] MEDS: DOCUSATE SODIUM LIQ 100 MG/10 ML UDC GT SCH (08:47)
[2018-10-24] MEDS: AMIODARONE HCL 200 MG TABLET PO SCH (08:47)
[2018-10-24] MEDS: LACTOBACILLUS RHAMNOSUS GG 1 EACH CAP.SPRINK PO SCH ×2 (08:47→17:18)
[2018-10-24] MEDS: PANTOPRAZOLE 40 MG VIAL IV SCH (08:47)
[2018-10-24] MEDS: ATORVASTATIN 40 MG TABLET PO SCH (08:48)
[2018-10-24] MEDS: ENOXAPARIN SODIUM 30 MG/0.3 ML DISP.SYRIN SQ SCH (08:48)
[2018-10-24] MEDS: METOPROLOL TARTRATE 25 MG TABLET PO SCH (08:48)
[2018-10-24] MEDS: DAKINS HALF STRENGTH (0.25%) 480 ML BOTTLE TOP SCH (08:49)
[2018-10-24] MEDS: Z GUARD REMEDY 2 OZ OINT TP SCH (08:49)
[2018-10-24] MEDS: ACETAMINOPHEN 650 MG/20.3 ML UDC NG PRN ×2 (08:50→17:18)
[2018-10-24] MEDS ORDERED: LEVO750T21 PO (10:21)
--- NOTE | 2018-10-24 10:30 | NUR ---
LINING BASTER NOTE SEEN BY ,UPDATED ABOUT PATIENT CONDITION WITH LABS,NOTIFIED PATIENT HAS LOW GARDE FEVER.GOT NEW ORDER TO FOR DISCHARGE.BILLPOSTER MADE AWARE.WILL CONTINUE TO MONITOR.
--- NOTE | 2018-10-24 18:35 | NUR ---
RT RECD PT TRACHED INTACT AND SECURED ON MECH VENT ALARMS ON AND AUDIBLE BAG AND MASK AT [facility] VENT PLUGGED IN RED OUTLET SX THIN PALE YELLOW MODERATE ABOUT OF SECRETIONS NO RESP DISTRESS NOTED ATT WILL CONT TO MONITOR
--- NOTE | 2018-10-24 19:00 | NUR ---
HEAD WOOD GRINDER CLOSING NOTES PT IN BED, HOB ELEVATED .ALERT.OPEN EYES.ON VENT ,TOLERATING SETTINGS MD ORDERED. NO S/SX OF RESP DISTRESS NOTED. ON TELE MONITOR SR HR 78. ON GTF ,JEVITY AT 50ML/HR. NO RESIDUAL NOTED. CECE PICC LINE WITH NS @60CC/HR. BED IN LOCKED/LOW POSITION. SR X3 . ASPIRATION PRECAUTIONS MAINTAINED. AMBU BAG AND TRACH AT BEDSIDE.CALL LIGHT IN REACH. DISCHARGE ON HOLD PER HEM INSPECTOR,CHARGE NURSE GOT INFORMED.SON MADE AWARE.WILL ENDORSE TO PM NURSE FOR KATHI.
[2018-10-24] MEDS ORDERED: VANCOMYCIN 0.75 GM in IV D5W 250 ML IV SCH (20:00)
[2018-10-25] VITALS: BP 118/61
[2018-10-25 04:00] VITALS: BP 118/53
[2018-10-25] MEDS: PIPERACILLIN /TAZOBACTAM 3.375 G in IV D5W 100 ML IV SCH ×2 (04:57→12:08)
[2018-10-25] MEDS: JEVITY 1.2 CAL 1,000 ML BOTTLE GT PRN ×2 (05:40→06:02)
--- NOTE | 2018-10-25 05:45 | NUR ---
PATIENT RECEIVED ON TRACH TO VENT WITH SETTINGS OF AC 10, 500 VT, 40%, +5. SUCTIONED WITH LAVAGE FOR MINIMAL, THIN, YELLOW SECRETIONS. AMBU BAG AT BEDSIDE. VENT AND PULSE OXIMETER ALARMS AUDIBLE AND VISIBLE. VENT PLUGGED INTO RED OUTLET. Addendum: 10/25/18 at 0547 by KAELA GRAVES RT Amended: Links added.
[2018-10-25 06:47] LABS: CALCIUM, SERUM 7.9 mg/dL (8.5-10.1); CARBON DIOXIDE 22 mmol/L (21-32); CHLORIDE 107 mmol/L (98-107); CREATININE 1.4 mg/dL (0.6-1.3); GLUCOSE 124 mg/dL (74-106); POTASSIUM 3.6 mmol/L (3.5-5.1); SODIUM SERUM 140 mmol/L (136-145); UREA NITROGEN, BLOOD 18 mg/dL (7-18)
--- NOTE | 2018-10-25 07:25 | NUR ---
SOUND CUTTER OPENING NOTES RECEIVED REPORT FRO PM NURSE. PT IN BED, HOB ELEVATED .ALERT.OPEN EYES.ON VENT ,TOLERATING SETTINGS MD ORDERED. NO S/SX OF RESP DISTRESS NOTED. ON TELE MONITOR SR HR 96. ON GTF ,JEVITY AT 50ML/HR. CECE PICC LINE WITH NS @60CC/HR. BED IN LOCKED/LOW POSITION. SR X3 . ASPIRATION PRECAUTIONS MAINTAINED. AMBU BAG AND TRACH AT BEDSIDE.CALL LIGHT IN REACH. WILL CONTINUE TO MONITOR.
[2018-10-25 08:00] VITALS: BP 120/58
[2018-10-25] MEDS: DOCUSATE SODIUM LIQ 100 MG/10 ML UDC GT SCH (09:05)
[2018-10-25] MEDS: PANTOPRAZOLE 40 MG VIAL IV SCH (09:05)
[2018-10-25] MEDS: ATORVASTATIN 40 MG TABLET PO SCH (09:05)
[2018-10-25] MEDS: LACTOBACILLUS RHAMNOSUS GG 1 EACH CAP.SPRINK PO SCH (09:05)
[2018-10-25] MEDS: AMIODARONE HCL 200 MG TABLET PO SCH (09:06)
[2018-10-25] MEDS: Z GUARD REMEDY 2 OZ OINT TP SCH (09:07)
[2018-10-25] MEDS: METOPROLOL TARTRATE 25 MG TABLET PO SCH (09:07)
[2018-10-25] MEDS: DAKINS HALF STRENGTH (0.25%) 480 ML BOTTLE TOP SCH (09:08)
[2018-10-25 12:00] VITALS: BP 102/53
--- NOTE | 2018-10-25 12:00 | NUR ---
TRAIL MAINTENANCE WORKER NOTE SEEN BY ,UPDATED ABOUT PATIENT CONDITION WITH LABS AND ABOUT LOW GRADE FEVER.OK TO D/C.
[2018-10-25] MEDS: ACETAMINOPHEN 650 MG/20.3 ML UDC NG PRN (12:14)
--- NOTE | 2018-10-25 12:30 | NUR ---
AWARD MACHINE OPERATOR NOTE GOT CALL FROM MANAGER HOSPITALITY AGUEDA,PATIENT DISCHARGING TO [facility]#[phone]
[2018-10-25] MEDS ORDERED: PROSOURCE / PROSTAT (PYXIS) 30 ML UDC GT SCH (13:00)
[2018-10-25] MEDS ORDERED: JEVITY 1.2 CAL 1,000 ML BOTTLE GT PRN (13:30)
--- NOTE | 2018-10-25 15:25 | NUR ---
ARTIFICIAL CANDY MAKERINSTRUCTIONAL TECHNOLOGIST NOTE PATIENT DISCHARGED TO [facility] IN STABLE CONDITION.NO SOB NO DISTRESS NOTED.VITAL SIGNS STABLE.REPORT GIVEN TO RN RAMONA AT [facility].MADE AWARE THAT PATIENT HAS LOW GRADE FEVER.OK TO TRANSFER PER FACILITY.AT TIME OF DISCHARGE PATIENT HAS TEMP OF 98.2F.REPORT GIVEN TO EMT.FAMILY MADE AWARE.SPOKE TO SON STEVE.MADE AWARE ABOUT QUILL BUNCHER AND SORTER AND DISCHARGE OF THE PATIENT.PICC LINE INTACT AND DRESSING CHANGED.GT INTACT.DISCHARGE PACKET GIVEN TO EMT.
== END 2018-10-25 15:25 | DRG 853 ==
LOC: ER 19:08 → ICU 22:13 → TELE-TD 10-19 12:33 → TELE1 10-20 17:09
PROVIDERS: ADMIT Legal Medicine; ATTEND Family Medicine
PROC: 5A1955Z Respiratory Ventilation, Greater than 96 Consecutive Hours (ICD-10-PCS; principal; 2018-10-16)
PROC: 02HV33Z Insertion of Infusion Device into Superior Vena Cava, Percutaneous Approach (ICD-10-PCS; 2018-10-17)
PROC: B548ZZA Ultrasonography of Superior Vena Cava, Guidance (ICD-10-PCS; 2018-10-17)
PROC: 0JBP0ZZ Excision of Left Lower Leg Subcutaneous Tissue and Fascia, Open Approach (ICD-10-PCS; 2018-10-18)
PROC: 0D20XUZ Change Feeding Device in Upper Intestinal Tract, External Approach (ICD-10-PCS; 2018-10-19)
PROC: 30233N1 Transfusion of Nonautologous Red Blood Cells into Peripheral Vein, Percutaneous Approach (ICD-10-PCS; 2018-10-19)
DX: A41.9 Sepsis, unspecified organism (principal); L89.894 Pressure ulcer of other site, stage 4; G93.41 Metabolic encephalopathy; R65.21 Severe sepsis with septic shock; R53.2 Functional quadriplegia; N17.0 Acute kidney failure with tubular necrosis; E87.1 Hypo-osmolality and hyponatremia; G93.1 Anoxic brain damage, not elsewhere classified; J96.11 Chronic respiratory failure with hypoxia; L03.114 Cellulitis of left upper limb; D68.59 Other primary thrombophilia; Z99.11 Dependence on respirator [ventilator] status; I69.351 Hemiplegia and hemiparesis following cerebral infarction affecting right dominant side; Z43.1 Encounter for attention to gastrostomy; N39.0 Urinary tract infection, site not specified; E87.8 Other disorders of electrolyte and fluid balance, not elsewhere classified; I10 Essential (primary) hypertension; E78.5 Hyperlipidemia, unspecified; D63.8 Anemia in other chronic diseases classified elsewhere; Z93.0 Tracheostomy status; E86.1 Hypovolemia; F03.90 Unspecified dementia, unspecified severity, without behavioral disturbance, psychotic disturbance, mood disturbance, and anxiety; K21.9 Gastro-esophageal reflux disease without esophagitis; N18.9 Chronic kidney disease, unspecified; Z74.01 Bed confinement status; R13.10 Dysphagia, unspecified; L89.522 Pressure ulcer of left ankle, stage 2; M24.571 Contracture, right ankle; M24.572 Contracture, left ankle; I12.9 Hypertensive chronic kidney disease with stage 1 through stage 4 chronic kidney disease, or unspecified chronic kidney disease; I69.820 Aphasia following other cerebrovascular disease
CPT/HCPCS: 31720; 36415; 36569; 36600; 71045-TC; 80048-TC; 80053-TC; 80076-TC; 80202-TC; 81000-TC; 82803-TC; 83605-TC; 83935-TC; 84300-TC; 84484-TC; 85025-TC; 85730-TC; 86850-TC; 86921-TC; 87040-TC; 87081-TC; 87086-TC; 87400; 94002-TC; 94003-TC; 94760-TC; 94761-TC; 94762-TC; 94799-TC; A4623; A6253; A6402; A6403; C1751; C9113; G0378; J1650; J1940; J2543; J3370; J7030; J7050; J7060; P9016-BL; Q0163